=== PATIENT | male | born 2000 | race African-American/Black ===

== ENCOUNTER → 2020-05-24 | Outpatient (CLI) | payer OTHER ==
--- NOTE | 2020-05-24 14:25 | RAD ---
INDICATION: Testicular pain. COMPARISON: None. TECHNIQUE: Grayscale, color and spectral doppler ultrasound images obtained of the scrotum. FINDINGS: Right Testicle: 39 x 24 x 21 mm. Vascular flow is identified. Left Testicle: 36 x 27 x 20 mm. Vascular flow is identified. Prominence of the pampiniform plexus bilaterally. IMPRESSION: * Vascular flow seen to the testicles without a worrisome intratesticular mass. * Prominence of the pampiniform plexus bilaterally. This can be seen with varicocele, mild. Electronically signed by: Fredi Garcia MD (05/24/2020 2:22 PM) [id number]
== END ==
LOC: EEVIPCON 13:00 → US 13:07
PROVIDERS: ATTEND Preventive Medicine Occupational Medicine
DX: I86.1 Scrotal varices (principal); N50.89 Other specified disorders of the male genital organs
CPT/HCPCS: 76870